=== PATIENT | female | born 1975 ===

== ENCOUNTER 2018-01-02 15:37 | Inpatient (IN) | payer MEDICAID, OTHER ==
[2018-01-02 15:37] VITALS: BMI 34.0
[2018-01-02] MEDS ORDERED: DiphenhydrAMINE 50 mg/ml Inj IVP STA (17:49)
[2018-01-02] MEDS ORDERED: Sodium Chloride 0.9% 1,000 ML IV STA (17:49)
[2018-01-02] MEDS ORDERED: DiphenhydrAMINE 50 mg/ml Inj ONE (18:03)
--- NOTE | 2018-01-02 18:21 | ED PDOC ---
HPI: Headache Chief Complaint (Provider): Headache, Facial Pain History Per: Patient History/Exam Limitations: no limitations Onset/Duration Of Symptoms: Days (x1) Current Symptoms Are (Timing): Still Present Additional Complaint(s): 42 year old female presents to the ED for evaluation of a gradual onset headache associated with photophobia, nausea, and left sided facial pain since yesterday consistent with similar episodes of her trigeminal neuralgia in the past. She reports she usually takes tramadol 100mg for her symptoms, but her supply was recently depleted. Pt also notes not having a neurologist in the area currently due to her recently moving from [place]. Otherwise denies trauma, fever, sudden onset of headache, and antipyretic use. PMD: Uri Geller <Ramiro Mathews - Last Filed: 01/02/18 23:23> <Addie Kendall - Last Filed: 01/04/18 18:26> Time Seen by Provider: 01/02/18 15:49 Chief Complaint (Nursing): Headache Supervising Attending Note - Attestation: I have personally seen and examined this patient.: No I have reviewed all pertinent clinical information: Yes <Addie Kendall - Last Filed: 01/04/18 18:26> Past Medical History Reviewed: Historical Data, Nursing Documentation, Vital Signs Vital Signs: Last Vital Signs Temp 98.3 F 01/02/18 15:42 Pulse 95 H 01/02/18 15:42 Resp 16 01/02/18 15:42 BP 135/85 01/02/18 15:42 Pulse Ox 97 01/02/18 15:42 - Medical History PMH: Asthma - Surgical History Other surgeries: tubal ligation - Family History Family History: States: Unknown Family Hx - Social History Current smoker - smoking cessation education provided: No Alcohol: None Drugs: Denies - Immunization History Hx Tetanus Toxoid Vaccination: Yes Hx Influenza Vaccination: No Hx Pneumococcal Vaccination: No <Ramiro Mathews - Last Filed: 01/02/18 23:23> Vital Signs: Last Vital Signs Temp 97.8 F 01/03/18 16:06 Pulse 97 H 01/03/18 16:06 Resp 18 01/03/18 16:06 BP 139/84 01/03/18 16:06 Pulse Ox 98 01/03/18 16:06 <Kendall,Addie F - Last Filed: 01/04/18 18:26> - Home Medications Home Medications: Ambulatory Orders Medication Instructions Recorded RX: Albuterol HFA [Ventolin HFA 90 2 puff IH [id number] PRN #1 puff 02/24/17 mcg/actuation (8 g)] RX: Gabapentin [Neurontin] 600 mg PO TID 10 Days tab 01/03/18 RX: Lidocaine 2% [Xylocaine 2%] 1 applic TOP BID 14 Days #1 tube 01/03/18 - Allergies Allergies/Adverse Reactions: Allergies Allergy/AdvReac Type Severity Reaction Status Date / Time No Known Allergies Allergy Verified 01/02/18 15:41 Review of Systems ROS Statement: Except As Marked, All Systems Reviewed And Found Negative Constitutional: Negative for: Fever, Other (trauma) Eyes: Positive for: Other (photophobia) ENT: Positive for: Other (left sided facial pain) Gastrointestinal: Positive for: Nausea Neurological: Positive for: Headache (gradual onset) <Ramiro Mathews - Last Filed: 01/02/18 23:23> Physical Exam - Reviewed Nursing Documentation Reviewed: Yes Vital Signs Reviewed: Yes - Physical Exam Appears: Positive for: In Acute Distress (mild painful) Head Exam: Positive for: ATRAUMATIC, NORMOCEPHALIC Skin: Positive for: Normal Color, Warm, Dry. Negative for: Rash Eye Exam: Positive for: Other (photophobia) ENT: Positive for: Normal ENT Inspection Gastrointestinal/Abdominal: Positive for: Normal Exam, Soft. Negative for: Tenderness Neurologic/Psych: Positive for: Alert, Oriented (x3). Negative for: Aphasia, Facial Droop <Ramiro Mathews - Last Filed: 01/02/18 23:23> - Laboratory Results Result Diagrams: 01/02/18 18:16 01/02/18 18:16 - ECG O2 Sat by Pulse Oximetry: 97 (RA) Pulse Ox Interpretation: Normal <Ramiro Mathews - Last Filed: 01/02/18 23:23> - Laboratory Results Result Diagrams: 01/02/18 18:16 01/02/18 18:16 <Addie Kendall F - Last Filed: 01/04/18 18:26> Medical Decision Making Medical Decision Making: Time: 1648 Initial Impression: headache, left facial pain Initial Plan: --CMP --U-preg --CBC with differential --Benadryl 50mg IVP --Imitrex Inj 6mg SC --Reglan 10mg IVPB --Ultram 100mg PO --CT Head without contrast 1809 Secondary to patient's nausea, Zofran 4mg IVP ordered. Pt. reports continued pain. CT head w/o contrast ordered. CT head w/o contrast: negative. Pt. evaluated by Dr. Kendall who recommends neuro consult. Case d/w Dr. Briceno who recommends Decadron 10mg IVP, valproic acid 500mg IV, mag sulfate 2gm IV. Pt. placed on environmental monitoring specialist. Orders placed. On re-evaluation, pt reports no relief in headache. Dr. Kendall recommends admission for intractable headache. Case d/w Dr. Briceno who recommends 0.3mg/kg Ketamine IV drip for 2 hours. Ketamine ordered. Case d/w Dr. Friedman and arrangements made for admission. Scribe Attestation: Documented by Vandana Goldberg, acting as a scribe for Ramiro Mathews PA-C Provider Scribe Attestation: All medical record entries made by the Scribe were at my direction and personally dictated by me. I have reviewed the chart and agree that the record accurately reflects my personal performance of the history, physical exam, medical decision making, and the department course for this patient. I have also personally directed, reviewed, and agree with the discharge instructions and disposition. <Ramiro Mathews - Last Filed: 01/02/18 23:23> Disposition - Patient ED Disposition Is Patient to be Admitted: Yes - Disposition Disposition Time: 23:27 <Ramiro Mathews - Last Filed: 01/02/18 23:23> <Addie Kendall - Last Filed: 01/04/18 18:26> - Clinical Impression Clinical Impression: Trigeminal neuralgia of left side of face - Disposition Condition: STABLE
[2018-01-02 18:28] LABS: BASO % 0.3 % (0.0-2.0); EOS % 0.4 % (0.0-4.0); HEMOGLOBIN 13.4 g/dL (12.0-16.0); LYMPH # 2.8 K/uL (1.0-4.3); LYMPH % 26.6 % (20.0-40.0); MEAN CORPUSCULAR HEMOGLOBIN 32.3 pg (27.0-31.0); MEAN CORPUSCULAR HGB CONC 34.7 g/dL (33.0-37.0); MEAN PLATELET VOLUME 8.2 fl (7.2-11.7); MONO # 0.9 K/uL (0.0-0.8); MONO % 8.4 % (0.0-10.0); NEUT # 6.6 K/uL (1.8-7.0); NEUT % 64.3 % (50.0-75.0); RBC 4.16 Mil/uL (3.80-5.20); RED CELL DISTRIBUTION WIDTH 13.9 % (11.5-14.5); WHITE BLOOD COUNT 10.3 K/uL (4.8-10.8)
[2018-01-02 18:34] LABS: ALB/GLOB RATIO 1.1 (1.0-2.1); ALBUMIN 4.4 g/dL (3.5-5.0); ALT/SGPT 27 U/L (9-52); AST/SGOT 23 U/L (14-36); BLOOD UREA NITROGEN 11 mg/dl (7-17); CALCIUM 9.4 mg/dL (8.4-10.2); GFR NON-AFRICAN AMERICAN > 60
--- NOTE | 2018-01-02 18:41 | CT ---
Date of service: 01/02/2018 PROCEDURE: CT HEAD WITHOUT CONTRAST. HISTORY: Headache COMPARISON: None available. TECHNIQUE: Axial computed tomography images were obtained through the head/brain without intravenous contrast. Radiation dose: Total exam DLP = 753.09 mGy-cm. This CT exam was performed using one or more of the following dose reduction techniques: Automated exposure control, adjustment of the mA and/or kV according to patient size, and/or use of iterative reconstruction technique. FINDINGS: HEMORRHAGE: No intracranial hemorrhage. BRAIN: Kinney-white matter differentiation is preserved. There is no mass, mass effect or abnormal extra-axial fluid collection. There is no territorial infarction. The midline sagittal structures are normal. VENTRICLES: The ventricles are normal in size, shape and configuration. CALVARIUM: The skull base and calvarium are normal. PARANASAL SINUSES: Predominantly clear. MASTOID AIR CELLS: Predominantly clear. OTHER FINDINGS: None. IMPRESSION: No acute intracranial abnormality.
[2018-01-02] MEDS ORDERED: Valproate 500 MG in Sodium Chloride 0.9% 100 ML IVPB ONE (19:56)
[2018-01-02] MEDS ORDERED: Dexamethasone 10 MG in Dextrose 5% In Water 50 ML IVPB ONE (19:56)
[2018-01-02] MEDS ORDERED: Magnesium Sulfate 2 gm/50 ml 2 GM/50 ML BAG IV ONE (20:45)
[2018-01-02] MEDS ORDERED: Magnesium Sulfate 2 gm/50 ml 2 GM/50 ML BAG ONE (20:50)
[2018-01-02] MEDS ORDERED: Dexamethasone 4 mg/1 ml ONE (21:06)
[2018-01-02] MEDS ORDERED: Ketamine 50 mg/ml Inj (10 ml) IVPB ONE (22:45)
[2018-01-02] MEDS ORDERED: SODIUM CHLORIDE 0.9% IVPB ONE (23:00)
[2018-01-02] MEDS ORDERED: KETAMINE IVPB ONE (23:00)
--- NOTE | 2018-01-03 00:15 | CP.PCM.HP ---
Addendum entered and electronically signed by Fawad Rubio DPM 01/03/18 11:30: 42 y/o female with PMHx of Trigeminal Neuralgia admitted for intractable headache 2/2 to [place]. Patient was seen and evaluated at bedside. Patient family member was at bedside. Patient complains of 10/10 pain to the left side of her face along with a headache. Patient states she is nauseous due to the headache and had 1 episode of vomiting clear fluids. Patient states she ate this morning and was able to tolerate food. Patient denies any complaints of fever, SOB or chest pain at this time. Plan: 1) Intractable Pain 2/2 to Trigeminal Neuralgia -pain control -carbamezpine 100mg BID -Pending Neurology consult- awaiting recommendations 2) Drug Screen - Urine Drug Screen- Pending 3) Prophylaxis -Lovenox 40mg SC QD Original Note: <Chung Ross - Last Filed: 01/03/18 01:00> History of Present Illness - History of Present Illness History of Present Illness: CC: "my trigeminal neuralgia is really bad" HPI: 42 y/o female, with PMHx of Trigeminal Neuralgia presented to the ER for evaluation of left sided facial pain/headache. She reports she was sleeping last night when she was suddenly woken up with severe left sided facial pain. She attempted to go back to sleep but symptoms did not improve. She reports the pain worsened throughout the day, prompting her to come to the ER. She denies taking any medications. The pain is located to the left side of her face, 10/10, described as constant, with radiation to her left neck and left shoulder. It is associated with photophobia and nausea. No history of trauma or injury. Pt reports formally taking tramadol 100mg as well as two other pain medciations prescribed her her neurologist and pain mgmnt . She does not remember their names but reports they are located in [facility]. She reports being admitted to a hospital in [facility] for over a month earlier this year where she was diagnosed with TN. She reports having a "binder of documents" at home with medications and treatments but failed to produce it today. No other complaints. Denies any numbness/tingling, weakness, CP/SOB/Palpiations, V/D/C, urinary symptoms. ROS: 12 systems reviewed, found to be negative as per HPI PMD: doesnt recall names PMHX: Trigeminal neuralgia (disgnosed this year) Meds: tramadol, unknown 2 other pain meds ALL: NKDA Psurghx: tubal ligation PhospHx: [place] in [place] (doesnt recall hospital name) Social: homeless, denies ETOH/tobacco/drug abuse FamilyHx: denies ED Course Vitals: stable, HR 95 CBC: wnl CMP: wnl CT: wnl Neuro consult Meds: -Decadron 10mg -mag 2gm -zofran 4mg -1 L NS -Benadryl 50mg IVP -Imitrex Inj 6mg SC -Reglan 10mg IVPB -Ultram 100mg PO -started on ketamine drip as per neuro Present on Admission - Present on Admission Any Indicators Present on Admission: No History of DVT/PE: No History of Uncontrolled Diabetes: No Urinary Catheter: No Decubitus Ulcer Present: No Past Patient History - Past Social History Smoking Status: Never Smoked Alcohol: None Drugs: Denies Home Situation {Lives}: Homeless - PULMONARY Hx Asthma: Yes - PSYCHIATRIC Hx Substance Use: No - SURGICAL HISTORY Hx Surgeries: Yes Hx Tubal Ligation: Yes - ANESTHESIA Hx Anesthesia: Yes Hx Anesthesia Reactions: No Meds Allergies/Adverse Reactions: Allergies Allergy/AdvReac Type Severity Reaction Status Date / Time No Known Allergies Allergy Verified 01/02/18 15:41 Physical Exam - Constitutional Appears: Non-toxic, No Acute Distress - Head Exam Head Exam: ATRAUMATIC, NORMOCEPHALIC Additional comments: mild tenderness overlying left aspect of face along V2 - Eye Exam Eye Exam: EOMI. absent: Nystagmus, Scleral icterus Pupil Exam: NORMAL ACCOMODATION, PERRL. absent: Irregular, Miosis, Mydriatic - ENT Exam ENT Exam: Mucous Membranes Moist - Neck Exam Neck exam: Positive for: Full Rom. Negative for: Tenderness - Respiratory Exam Respiratory Exam: Clear to Auscultation Bilateral, NORMAL BREATHING PATTERN. absent: Accessory Muscle Use, Rales, Rhonchi, Wheezes - Cardiovascular Exam Cardiovascular Exam: REGULAR RHYTHM, RRR, +S1, +S2. absent: Tachycardia, Irregular Rhythm, JVD, Rubs, Systolic Murmur - GI/Abdominal Exam GI & Abdominal Exam: Normal Bowel Sounds, Soft. absent: Tenderness - Extremities Exam Extremities exam: Positive for: normal capillary refill, normal inspection, pedal pulses present. Negative for: pedal edema, tenderness - Back Exam Back exam: NORMAL INSPECTION - Neurological Exam Neurological exam: Alert, CN II-XII Intact, Oriented x3 - Psychiatric Exam Psychiatric exam: Normal Affect, Normal Mood - Skin Skin Exam: Dry, Intact, Normal Color, Warm Results - Vital Signs Recent Vital Signs: Last Vital Signs Temp 98.5 F 01/02/18 23:58 Pulse 74 01/02/18 23:58 Resp 17 01/02/18 23:58 BP 132/83 01/02/18 23:58 Pulse Ox 99 01/02/18 23:58 - Labs Result Diagrams: 01/02/18 18:16 01/02/18 18:16 Labs: Laboratory Results - last 24 hr 01/02/18 01/02/18 18:16 18:16 WBC 10.3 RBC 4.16 Hgb 13.4 Hct 38.7 MCV 93.0 MCH 32.3 H MCHC 34.7 RDW 13.9 Plt Count 298 MPV 8.2 Neut % (Auto) 64.3 Lymph % (Auto) 26.6 [place] % (Auto) 8.4 Eos % (Auto) 0.4 Baso % (Auto) 0.3 Neut # (Auto) 6.6 Lymph # (Auto) 2.8 [place] # (Auto) 0.9 H Eos # (Auto) 0.0 Baso # (Auto) 0.0 Sodium 140 Potassium 4.0 Chloride 105 Carbon Dioxide 24 Anion Gap 15 BUN 11 Creatinine 0.7 Est GFR ( Amer) > 60 Est GFR (Non-Af Amer) > 60 Random Glucose 97 Calcium 9.4 Total Bilirubin 0.2 AST 23 ALT 27 Alkaline Phosphatase 118 Total Protein 8.5 H Albumin 4.4 Globulin 4.0 H Albumin/Globulin Ratio 1.1 Assessment & Plan - Assessment and Plan (Free Text) Assessment: 42 y/o female with PMHx of Trigeminal Neuralgia admitted for intractable headache 2/2 to [place]. Plan: 1) Intractable Pain 2/2 to Trigeminal Neuralgia -high suspicion for potential drug seeking behavior -c/w ketamine drip as per neuro -head CT negative -neuro checks -pain control -start carbamezpine 100mg BID once ketamine drip completes -follow up records in [facility]/prior specialists -neuro consult -consider brain MRI 2) Diet -regular 3) Prophylaxis -Lovenox 40mg SC QD 4) Code Status -full code <Antoine Friedman P - Last Filed: 01/03/18 06:54> Results - Vital Signs Recent Vital Signs: Last Vital Signs Temp 97.7 F 01/03/18 02:38 Pulse 71 01/03/18 02:38 Resp 20 01/03/18 02:38 BP 123/80 01/03/18 02:38 Pulse Ox 98 01/03/18 02:38 - Labs Result Diagrams: 01/02/18 18:16 01/02/18 18:16 Labs: Laboratory Results - last 24 hr 01/02/18 01/02/18 18:16 18:16 WBC 10.3 RBC 4.16 Hgb 13.4 Hct 38.7 MCV 93.0 MCH 32.3 H MCHC 34.7 RDW 13.9 Plt Count 298 MPV 8.2 Neut % (Auto) 64.3 Lymph % (Auto) 26.6 [place] % (Auto) 8.4 Eos % (Auto) 0.4 Baso % (Auto) 0.3 Neut # (Auto) 6.6 Lymph # (Auto) 2.8 [place] # (Auto) 0.9 H Eos # (Auto) 0.0 Baso # (Auto) 0.0 Sodium 140 Potassium 4.0 Chloride 105 Carbon Dioxide 24 Anion Gap 15 BUN 11 Creatinine 0.7 Est GFR ( Amer) > 60 Est GFR (Non-Af Amer) > 60 Random Glucose 97 Calcium 9.4 Total Bilirubin 0.2 AST 23 ALT 27 Alkaline Phosphatase 118 Total Protein 8.5 H Albumin 4.4 Globulin 4.0 H Albumin/Globulin Ratio 1.1 Attending/Attestation - Attestation I have personally seen and examined this patient.: Yes I have fully participated in the care of the patient.: Yes I have reviewed all pertinent clinical information: Yes Notes (Text): 01/03/18 06:46 Patient recently moved from [place] as per her was admitted to [facility] for more than a month for intractable left TN, had been receiving all sorts of meds including opiods in the hospital, and out patient was being managed by neurologist and pain physician. As per her was taking tramadol and 2 other meds which she ran out for last 2 wks and the pain started again yesterday. Patient didn't had the bottles, no information from the hospital, and didn't remember the names of the physicians prescribing the meds. W/u her was negative including vital. Neurology was consulted in ER suggested initially coctails as mentioned above and then ketamine drip. 42 F coming with intractable pain which could not be confirmed, without any details of the care including physicians, med bottles, is suspicious for pain seeking behaviour, should try to avoid opiods, will try to contact the [facility] today to confirm details including patients pictures. Currently started on carbamezipine 100mg bid. Neurology on consult.
[2018-01-03] MEDS ORDERED: Pneumococcal 23-Valent Vaccine IM ONE (08:32)
[2018-01-03] MEDS ORDERED: Influenza Vaccine (5 YR UP)/PF 60 MCG/0.5 ML SYR IM ONE (08:35)
[2018-01-03] MEDS ORDERED: Enoxaparin 40 mg Syringe SC SCH (09:00)
[2018-01-03] MEDS ORDERED: Lidocaine 2% GEL TOP ONE (11:05)
[2018-01-03 11:45] LABS: BARBITURATES, UR NEGATIVE (NEGATIVE); BENZODIAZEPINES, UR NEGATIVE (NEGATIVE); OPIATES, UR POSITIVE (NEGATIVE); PHENCYCLIDINE, UR NEGATIVE (NEGATIVE)
--- NOTE | 2018-01-03 14:15 | CP.PCM.CON ---
History of Present Illness - History of Present Illness History of Present Illness: Neurology Consultation Note: Mrs. Peña is a 42-year-old woman, with a pertinent past medical history of left V1/2 distribution trigeminal neuralgia that has been refractory to carbamazepine, opiates and lidocaine nerve block. She states that when the weather was colder the other day, her symptoms became more severe and now she also has headache on the left side that is pulsating, associated with nausea and photophobia. However, the patient was able to complete a meal that involves a significant amount of chewing and was pleasant and conversant with me in a bright room. She does currently complain of a 10/10 pain that is disabling. She said that the doses of medications we are giving her are too low. Last night, I spoke with the ED regarding this patient and gave her Depakote, Decadron, and Magnesium Sulfate. That did not help. We then started ketamine infusion. Apparently, that did not help either. Non-contrast CT scan of the head was normal. Review of Systems - Constitutional Constitutional: absent: As Per HPI, Anorexia, Chills, Daytime Sleepiness, Excessive Sweating, Fatigue, Fever, Frequent Falls, Headache, Increased Appetite, Lethargy, Malaise, Night Sweats, Snoring, Sleep Apnea, Weight Gain, Weight Loss, Weakness, Other - EENT Eyes: absent: As Per HPI, Blind Spots, Blurred Vision, Change in Vision, Decreased Night Vision, Diplopia, Discharge, Dry Eye, Exophthalmos, Floaters, Irritation, Itchy Eyes, Loss of Peripheral Vision, Pain, Photophobia, Requires Corrective Lenses, Sees Flashes, Spots in Vision, Tunnel Vision, Other Visual Disturbances, Loss of Vision, Other Ears: absent: As Per HPI, Decreased Hearing, Ear Discharge, Ear Pain, Tinnitus, Abnormal Hearing, Disequilibrium, Dizziness, Other Nose/Mouth/Throat: absent: As Per HPI, Epistaxis, Nasal Congestion, Nasal Discharge, Nasal Obstruction, Nasal Trauma, Nose Pain, Post Nasal Drip, Sinus Pain, Sinus Pressure, Bleeding Gums, Change in Voice, Dental Pain, Dry Mouth, Dysphagia, Halitosis, Hoarsness, Lip Swelling, Mouth Lesions, Mouth Pain, Odynophagia, Sore Throat, Throat Swelling, Tongue Swelling, Facial Pain, Neck Pain, Neck Mass, Other - Respiratory Respiratory: absent: As Per HPI, Cough, Dyspnea, Hemoptysis, Dyspnea on Exertio n, Wheezing, Snoring, Stridor, Pain on Inspiration, Chest Congestion, Excessive Mucous Production, Change in Mucous Color, Pain with Coughing, Other - Gastrointestinal Gastrointestinal: absent: As Per HPI, Abdominal Pain, Belching, Bloating, Change in Bowel Habits, Change in Stool Character, Coffee Ground Emesis, Constipation, Cramping, Diarrhea, Dyspepsia, Dysphagia, Early Satiety, Excessive Flatus, Fecal Incontinence, Heartburn, Hematemesis, Hematochezia, Loose Stools, Melena, Nausea, Odynophagia, Temesmus, Vomiting, Other - Musculoskeletal Musculoskeletal: absent: As Per HPI, Abnormal Gait, Arthralgias, Atrophy, Back Pain, Deformity, Joint Swelling, Limited Range of Motion, Loss of Height, Muscle Cramps, Muscle Weakness, Myalgias, Neck Pain, Numbness, Radiating Pain into Limb, Stiffness, Tingling, Other - Integumentary Integumentary: absent: As Per HPI, Acne, Alopecia, Bleeding Lesions, Change in Hair, Change in Nails, Change in Pigmentation, Changing Lesions, Dry Skin, Erythema, Furuncle, Hirsutism, Lesions, New Lesions, Non-Healing Lesions, Photosensitivity, Pruritus, Rash, Skin Pain, Skin Ulcer, Sores, Striae, Swelling, Unusual Bruising, Wounds, Jaundice, Other - Neurological Neurological: As Per HPI - Psychiatric Psychiatric: absent: As Per HPI, Abnormal Sleep Pattern, Anhedonia, Anxiety, Auditory Hallucinations, Behavioral Changes, Change in Appetite, Change in Libido, Confusion, Depression, Difficulty Concentrating, Hallucinations, Homicidal Ideation, Hopelessness, Irritability, Memory Loss, Mood Swings, Panic Attacks, Paranoia, Suicidal Ideation, Visual Hallucinations, Tactile Hallucinations, Other - Endocrine Endocrine: absent: As Per HPI, Change in Body Appearance, Change in Libido, Cold Intolorance, Deepening of Voice, Excessive Sweating, Fatigue, Flushing, Heat Intolorance, Increase in Ring/Shoe/Hat Size, Palpitations, Polydipsia, Polyphagia, Polyuria, Other Past Patient History - Past Medical History & Family History Past Medical History?: Yes - Past Social History Smoking Status: Never Smoked - CARDIAC Hx Cardiac Disorders: No - PULMONARY Hx Respiratory Disorders: Yes Hx Asthma: Yes - NEUROLOGICAL Hx Neurological Disorder: Yes Other/Comment: Trigeminal NEuralgia - HEENT Hx HEENT Problems: No - RENAL Hx Chronic Kidney Disease: No - ENDOCRINE/METABOLIC Hx Endocrine Disorders: No - HEMATOLOGICAL/ONCOLOGICAL Hx Blood Disorders: No Hx AIDS: No Hx Human Immunodeficiency Virus (HIV): No - INTEGUMENTARY Hx Dermatological Problems: No - MUSCULOSKELETAL/RHEUMATOLOGICAL Hx Musculoskeletal Disorders: No Hx Falls: No - GASTROINTESTINAL Hx Gastrointestinal Disorders: No - GENITOURINARY/GYNECOLOGICAL Hx Genitourinary Disorders: No - PSYCHIATRIC Hx Psychophysiologic Disorder: No Hx Substance Use: No - SURGICAL HISTORY Hx Surgeries: Yes Hx Tubal Ligation: Yes - ANESTHESIA Hx Anesthesia: Yes Hx Anesthesia Reactions: No Hx Malignant Hyperthermia: No Meds Allergies/Adverse Reactions: Allergies Allergy/AdvReac Type Severity Reaction Status Date / Time No Known Allergies Allergy Verified 01/02/18 15:41 - Medications Medications: Current Medications Carbamazepine (Tegretol-Xr) 100 mg PO Q12 [facility] Last Admin: 01/03/18 09:07 Dose: Not Given Enoxaparin Sodium (Lovenox) 40 mg SC DAILY [facility]; Protocol Last Admin: 01/03/18 09:26 Dose: 40 mg Famotidine (Pepcid) 20 mg PO DAILY [facility] Last Admin: 01/03/18 11:30 Dose: 20 mg Ibuprofen (Motrin Tab) 600 mg PO Q6 PRN PRN Reason: Pain, moderate (4-7) Last Admin: 01/03/18 10:07 Dose: 600 mg Ketorolac Tromethamine (Toradol) 10 mg PO Q6 PRN PRN Reason: Pain, severe (8-10) Last Admin: 01/03/18 11:30 Dose: 10 mg Lidocaine HCl (Xylocaine 2%) 1 applic TOP BID [facility] Last Admin: 01/03/18 11:38 Dose: 1 applic Ondansetron HCl (Zofran Inj) 4 mg IVP Q6 PRN PRN Reason: Nausea/Vomiting Physical Exam - Constitutional Appears: Well - Head Exam Head Exam: ATRAUMATIC, NORMAL INSPECTION, NORMOCEPHALIC - Eye Exam Eye Exam: EOMI, Normal appearance, PERRL - ENT Exam ENT Exam: Mucous Membranes Moist, Normal Exam - Neck Exam Neck exam: Positive for: Normal Inspection - Respiratory Exam Respiratory Exam: Clear to Auscultation Bilateral, NORMAL BREATHING PATTERN - Cardiovascular Exam Cardiovascular Exam: REGULAR RHYTHM - GI/Abdominal Exam GI & Abdominal Exam: Normal Bowel Sounds, Soft. absent: Tenderness - Rectal Exam Rectal Exam: Deferred - Back Exam Back exam: NORMAL INSPECTION - Neurological Exam Neurological exam: Alert, CN II-XII Intact, Normal Gait, Oriented x3, Reflexes Normal - Psychiatric Exam Psychiatric exam: Normal Affect, Normal Mood - Skin Skin Exam: Dry, Intact, Normal Color, Warm Results - Vital Signs Recent Vital Signs: Last Vital Signs Temp 98.2 F 01/03/18 08:37 Pulse 79 01/03/18 08:37 Resp 20 01/03/18 08:37 BP 119/73 01/03/18 08:37 Pulse Ox 97 01/03/18 08:37 - Labs Result Diagrams: 01/02/18 18:16 01/02/18 18:16 Labs: Laboratory Results - last 24 hr 01/02/18 01/02/18 01/03/18 18:16 18:16 10:30 WBC 10.3 RBC 4.16 Hgb 13.4 Hct 38.7 MCV 93.0 MCH 32.3 H MCHC 34.7 RDW 13.9 Plt Count 298 MPV 8.2 Neut % (Auto) 64.3 Lymph % (Auto) 26.6 [place] % (Auto) 8.4 Eos % (Auto) 0.4 Baso % (Auto) 0.3 Neut # (Auto) 6.6 Lymph # (Auto) 2.8 [place] # (Auto) 0.9 H Eos # (Auto) 0.0 Baso # (Auto) 0.0 Sodium 140 Potassium 4.0 Chloride 105 Carbon Dioxide 24 Anion Gap 15 BUN 11 Creatinine 0.7 Est GFR ( Amer) > 60 Est GFR (Non-Af Amer) > 60 Random Glucose 97 Calcium 9.4 Total Bilirubin 0.2 AST 23 ALT 27 Alkaline Phosphatase 118 Total Protein 8.5 H Albumin 4.4 Globulin 4.0 H Albumin/Globulin Ratio 1.1 Urine Opiates Screen Positive H Urine Methadone Screen Negative Ur Barbiturates Screen Negative Ur Phencyclidine Scrn Negative Ur Amphetamines Screen Negative U Benzodiazepines Scrn Negative U Oth Cocaine Metabols Negative U Cannabinoids Screen Negative Assessment & Plan (1) Trigeminal neuralgia of left side of face Assessment and Plan: Will start neurontin 600 mg TID and follow. Status: Acute (2) Migraine Assessment and Plan: Will consider treating with another infusion of ketamine if this does not subside with use of neurontin to treat the trigeminal nerve irritation. Thank you for this consultation. Status: Acute
[2018-01-03 16:07] VITALS: BP 139/84; PULSE 97; RESP 18; TEMP 97.8; O2SAT 98
--- NOTE | 2018-01-03 16:17 | CP.PCM.DIS ---
<Gabbi Bravo - Last Filed: 01/03/18 16:51> Provider - Provider Date of Admission: 01/02/18 22:33 Attending physician: Antoine Friedman MD Time Spent in preparation of Discharge (in minutes): 30 Diagnosis - Discharge Diagnosis (1) Headache Status: Chronic Hospital Course - Lab Results Lab Results: Most Recent Lab Values WBC 10.3 K/uL (4.8-10.8) 01/02/18 18:16 RBC 4.16 Mil/uL (3.80-5.20) 01/02/18 18:16 Hgb 13.4 g/dL (12.0-16.0) 01/02/18 18:16 Hct 38.7 % (34.0-47.0) 01/02/18 18:16 MCV 93.0 fl (81.0-99.0) 01/02/18 18:16 MCH 32.3 pg (27.0-31.0) H 01/02/18 18:16 MCHC 34.7 g/dL (33.0-37.0) 01/02/18 18:16 RDW 13.9 % (11.5-14.5) 01/02/18 18:16 Plt Count 298 K/uL (130-400) 01/02/18 18:16 MPV 8.2 fl (7.2-11.7) 01/02/18 18:16 Neut % (Auto) 64.3 % (50.0-75.0) 01/02/18 18:16 Lymph % (Auto) 26.6 % (20.0-40.0) 01/02/18 18:16 Arthur % (Auto) 8.4 % (0.0-10.0) 01/02/18 18:16 Eos % (Auto) 0.4 % (0.0-4.0) 01/02/18 18:16 Baso % (Auto) 0.3 % (0.0-2.0) 01/02/18 18:16 Neut # (Auto) 6.6 K/uL (1.8-7.0) 01/02/18 18:16 Lymph # (Auto) 2.8 K/uL (1.0-4.3) 01/02/18 18:16 Arthur # (Auto) 0.9 K/uL (0.0-0.8) H 01/02/18 18:16 Eos # (Auto) 0.0 K/uL (0.0-0.7) 01/02/18 18:16 Baso # (Auto) 0.0 K/uL (0.0-0.2) 01/02/18 18:16 Sodium 140 mmol/l (132-148) 01/02/18 18:16 Potassium 4.0 MMOL/L (3.6-5.0) 01/02/18 18:16 Chloride 105 mmol/L (98-107) 01/02/18 18:16 Carbon Dioxide 24 mmol/L (22-30) 01/02/18 18:16 Anion Gap 15 (10-20) 01/02/18 18:16 BUN 11 mg/dl (7-17) 01/02/18 18:16 Creatinine 0.7 mg/dl (0.7-1.2) 01/02/18 18:16 Est GFR ( Amer) > 60 01/02/18 18:16 Est GFR (Non-Af Amer) > 60 01/02/18 18:16 Random Glucose 97 mg/dL (65-105) 01/02/18 18:16 Calcium 9.4 mg/dL (8.4-10.2) 01/02/18 18:16 Total Bilirubin 0.2 mg/dl (0.2-1.3) 01/02/18 18:16 AST 23 U/L (14-36) 01/02/18 18:16 ALT 27 U/L (9-52) 01/02/18 18:16 Alkaline Phosphatase 118 U/L (38-126) 01/02/18 18:16 Total Protein 8.5 G/DL (6.3-8.2) H 01/02/18 18:16 Albumin 4.4 g/dL (3.5-5.0) 01/02/18 18:16 Globulin 4.0 gm/dL (2.2-3.9) H 01/02/18 18:16 Albumin/Globulin Ratio 1.1 (1.0-2.1) 01/02/18 18:16 Urine Opiates Screen Positive (NEGATIVE) H 01/03/18 10:30 Urine Methadone Screen Negative (NEGATIVE) 01/03/18 10:30 Ur Barbiturates Screen Negative (NEGATIVE) 01/03/18 10:30 Ur Phencyclidine Scrn Negative (NEGATIVE) 01/03/18 10:30 Ur Amphetamines Screen Negative (NEGATIVE) 01/03/18 10:30 U Benzodiazepines Scrn Negative (NEGATIVE) 01/03/18 10:30 U Oth Cocaine Metabols Negative (NEGATIVE) 01/03/18 10:30 U Cannabinoids Screen Negative (NEGATIVE) 01/03/18 10:30 - Hospital Course Hospital Course: 42 y/o female with PMHx of Trigeminal Neuralgia admitted for intractable headache 04/27 to [place]. - Patient was given decadron, Ketamine drip, toradol, Magnesium, Imitrex, Reglan, and carbamazapine. Which as per patient didn't help much. - She was seen by neurology in house and was seen eating her lunch without any problems. She was advised to take Gabapentin 600mg TID. She was also been given topical lidocaine. CT head is negative in ER. - Patients states that her pain is more improved then initial presentation, however continues to occur. Have spoke to neurology and hospitalist Dr. Meeks. Patient is stable for discharge. Will be discharged with Gabapentin 600 mg TID along with topical lidocaine, and has been given an appointment to follow up in [facility] with Dr. Koch @1:00 pm tomorrow. Discharge medications Gabapentin 600 mg TID Lidocaine 2% topical Discharge Exam - Head Exam Head Exam: ATRAUMATIC, NORMAL INSPECTION, NORMOCEPHALIC - Eye Exam Eye Exam: Normal appearance - ENT Exam ENT Exam: Mucous Membranes Moist - Respiratory Exam Respiratory Exam: Clear to PA & Lateral, NORMAL BREATHING PATTERN. absent: Wheezes, Respiratory Distress - Cardiovascular Exam Cardiovascular Exam: REGULAR RHYTHM, +S1, +S2 - GI/Abdominal Exam GI & Abdominal Exam: Normal Bowel Sounds, Soft. absent: Tenderness - Extremities Exam Extremities exam: normal inspection - Neurological Exam Neurological exam: Alert, CN II-XII Intact, Oriented x3 - Skin Skin Exam: Normal Color, Warm Discharge Plan - Discharge Medications Prescriptions: Gabapentin [Neurontin] 600 mg PO TID 10 Days tab Lidocaine 2% [Xylocaine 2%] 1 applic TOP BID 14 Days #1 tube - Follow Up Plan Condition: STABLE Disposition: HOME/ ROUTINE Instructions: Trigeminal Neuralgia, Headache, Adult (DC) Additional Instructions: - Follow up in [facility]: January 04, 2018 @ 1:00 pm Referrals: [facility] [Outside] Kem Briceno MD [Medical Doctor] - <Kelly Meeks - Last Filed: 01/03/18 18:12> Provider - Provider Date of Admission: 01/02/18 22:33 Attending physician: Antoine Friedman MD Hospital Course - Lab Results Lab Results: Most Recent Lab Values WBC 10.3 K/uL (4.8-10.8) 01/02/18 18:16 RBC 4.16 Mil/uL (3.80-5.20) 01/02/18 18:16 Hgb 13.4 g/dL (12.0-16.0) 01/02/18 18:16 Hct 38.7 % (34.0-47.0) 01/02/18 18:16 MCV 93.0 fl (81.0-99.0) 01/02/18 18:16 MCH 32.3 pg (27.0-31.0) H 01/02/18 18:16 MCHC 34.7 g/dL (33.0-37.0) 01/02/18 18:16 RDW 13.9 % (11.5-14.5) 01/02/18 18:16 Plt Count 298 K/uL (130-400) 01/02/18 18:16 MPV 8.2 fl (7.2-11.7) 01/02/18 18:16 Neut % (Auto) 64.3 % (50.0-75.0) 01/02/18 18:16 Lymph % (Auto) 26.6 % (20.0-40.0) 01/02/18 18:16 Arthur % (Auto) 8.4 % (0.0-10.0) 01/02/18 18:16 Eos % (Auto) 0.4 % (0.0-4.0) 01/02/18 18:16 Baso % (Auto) 0.3 % (0.0-2.0) 01/02/18 18:16 Neut # (Auto) 6.6 K/uL (1.8-7.0) 01/02/18 18:16 Lymph # (Auto) 2.8 K/uL (1.0-4.3) 01/02/18 18:16 Arthur # (Auto) 0.9 K/uL (0.0-0.8) H 01/02/18 18:16 Eos # (Auto) 0.0 K/uL (0.0-0.7) 01/02/18 18:16 Baso # (Auto) 0.0 K/uL (0.0-0.2) 01/02/18 18:16 Sodium 140 mmol/l (132-148) 01/02/18 18:16 Potassium 4.0 MMOL/L (3.6-5.0) 01/02/18 18:16 Chloride 105 mmol/L (98-107) 01/02/18 18:16 Carbon Dioxide 24 mmol/L (22-30) 01/02/18 18:16 Anion Gap 15 (10-20) 01/02/18 18:16 BUN 11 mg/dl (7-17) 01/02/18 18:16 Creatinine 0.7 mg/dl (0.7-1.2) 01/02/18 18:16 Est GFR ( Amer) > 60 01/02/18 18:16 Est GFR (Non-Af Amer) > 60 01/02/18 18:16 Random Glucose 97 mg/dL (65-105) 01/02/18 18:16 Calcium 9.4 mg/dL (8.4-10.2) 01/02/18 18:16 Total Bilirubin 0.2 mg/dl (0.2-1.3) 01/02/18 18:16 AST 23 U/L (14-36) 01/02/18 18:16 ALT 27 U/L (9-52) 01/02/18 18:16 Alkaline Phosphatase 118 U/L (38-126) 01/02/18 18:16 Total Protein 8.5 G/DL (6.3-8.2) H 01/02/18 18:16 Albumin 4.4 g/dL (3.5-5.0) 01/02/18 18:16 Globulin 4.0 gm/dL (2.2-3.9) H 01/02/18 18:16 Albumin/Globulin Ratio 1.1 (1.0-2.1) 01/02/18 18:16 Urine Opiates Screen Positive (NEGATIVE) H 01/03/18 10:30 Urine Methadone Screen Negative (NEGATIVE) 01/03/18 10:30 Ur Barbiturates Screen Negative (NEGATIVE) 01/03/18 10:30 Ur Phencyclidine Scrn Negative (NEGATIVE) 01/03/18 10:30 Ur Amphetamines Screen Negative (NEGATIVE) 01/03/18 10:30 U Benzodiazepines Scrn Negative (NEGATIVE) 01/03/18 10:30 U Oth Cocaine Metabols Negative (NEGATIVE) 01/03/18 10:30 U Cannabinoids Screen Negative (NEGATIVE) 01/03/18 10:30 Attending/Attestation - Attestation I have personally seen and examined this patient.: Yes I have fully participated in the care of the patient.: Yes I have reviewed all pertinent clinical information, including history, physical exam and plan: Yes Notes (Text): Headache, History of Trigeminal Neuralgia improved -better with Gabapentin and Lidocaine - CT of head : negative - no neuro deficit - evaluated by Neurology - Tolerates PO diet and is ambulatory - will ff up at the clinic in am
[2018-01-03] MEDS ORDERED: Lidocaine 2% GEL TOP SCH (17:00)
== END 2018-01-03 16:15 | disposition home or self-care (01) | DRG 74 ==
LOC: H.ER 15:37 → H.ERHOLD 22:33 → H.MEDSURG1 01-03 02:20
PROVIDERS: ADMIT Internal Medicine; ATTEND Internal Medicine
PROC: 3E02340 Introduction of Influenza Vaccine into Muscle, Percutaneous Approach (ICD-10-PCS; principal; 2018-01-03)
PROC: 3E0234Z Introduction of Serum, Toxoid and Vaccine into Muscle, Percutaneous Approach (ICD-10-PCS; 2018-01-03)
DX: G50.0 Trigeminal neuralgia (principal); Z59.0 Homelessness; J45.909 Unspecified asthma, uncomplicated; Z23 Encounter for immunization

== ENCOUNTER 2018-01-23 09:56 | Emergency (ER) | payer MEDICAID ==
[2018-01-23 09:56] VITALS: BMI 34.0
[2018-01-23 10:01] VITALS: O2SAT 98
--- NOTE | 2018-01-23 10:17 | ED PDOC ---
HPI: General Adult Time Seen by Provider: 01/23/18 10:08 Chief Complaint (Nursing): Headache History Per: Patient Onset/Duration Of Symptoms: Days (1) Current Symptoms Are (Timing): Still Present Severity: Moderate Pain Scale Rating Of: 5 Additional Complaint(s): Left ear pain x 1 day. [place] small amount of clear liquid coming from ear this A<. Denies injury or fever. Has also had pain left side of face, chronic, dx'ed with trigeminal neuralgia, has appt with neurologist tomorrow. No rash noted. Past Medical History Vital Signs: Last Vital Signs Temp 98.1 F 01/23/18 10:00 Pulse 83 01/23/18 10:00 Resp 19 01/23/18 10:00 BP 145/95 H 01/23/18 10:00 Pulse Ox 98 01/23/18 10:00 - Medical History PMH: Asthma Denies: HIV, Chronic Kidney Disease Other PMH: Trigeminal neuralgia - Family History Family History: States: Unknown Family Hx - Immunization History Hx Tetanus Toxoid Vaccination: Yes Hx Influenza Vaccination: No Hx Pneumococcal Vaccination: No - Home Medications Home Medications: Ambulatory Orders Medication Instructions Recorded Albuterol HFA [Ventolin HFA 90 2 puff IH [id number] PRN #1 puff 02/24/17 mcg/actuation (8 g)] Gabapentin [Neurontin] 600 mg PO TID 10 Days tab 01/03/18 Lidocaine 2% [Xylocaine 2%] 1 applic TOP BID 14 Days #1 tube 01/03/18 Neomycin/Polymyxin/Hydrocortis 3 drop OT TID #1 bottle 01/23/18 [Cortisporin Otic Susp] traMADol [Ultram] 50 mg PO Q8 #10 tab 01/23/18 - Allergies Allergies/Adverse Reactions: Allergies Allergy/AdvReac Type Severity Reaction Status Date / Time No Known Allergies Allergy Verified 01/23/18 10:06 Review of Systems Constitutional: Negative for: Fever ENT: Positive for: Ear Pain Physical Exam - Physical Exam Appears: Positive for: Non-toxic, Uncomfortable Head Exam: Positive for: ATRAUMATIC, NORMAL INSPECTION, NORMOCEPHALIC Skin: Positive for: Normal Color, Warm. Negative for: Rash Eye Exam: Positive for: Normal appearance, EOMI ENT: Positive for: Other (Left canal erythemetous, no bleeding or drainage noted. TM intact nl appearance. No facial rash, erythema or swelling noted) Neurologic/Psych: Positive for: Alert, Oriented. Negative for: Motor/Sensory Deficits - ECG O2 Sat by Pulse Oximetry: 98 Disposition - Clinical Impression Clinical Impression: Trigeminal neuralgia of left side of face, Otitis externa - Patient ED Disposition Is Patient to be Admitted: No Counseled Patient/Family Regarding: Diagnosis, Need For Followup, Rx Given - Disposition Referrals: Zeeshan Stone MD [Staff Provider] - Disposition: Routine/Home Disposition Time: 10:20 Condition: FAIR Prescriptions: Neomycin/Polymyxin/Hydrocortis [Cortisporin Otic Susp] 3 drop OT TID #1 bottle traMADol [Ultram] 50 mg PO Q8 #10 tab Instructions: Trigeminal Neuralgia, Outer Ear Infection
[2018-01-23 11:11] VITALS: BP 110/70; PULSE 74; RESP 20; TEMP 98
== END 2018-01-23 11:11 | disposition home or self-care (01) ==
LOC: H.ER 09:56
DX: G50.0 Trigeminal neuralgia (principal); H60.92 Unspecified otitis externa, left ear

== ENCOUNTER 2018-05-14 15:41 | Emergency (ER) | payer MEDICAID ==
[2018-05-14 15:41] VITALS: BMI 34.0
[2018-05-14 15:45] VITALS: TEMP 98.3
--- NOTE | 2018-05-14 16:06 | ED PDOC ---
HPI: General Adult Time Seen by Provider: 05/14/18 15:49 Chief Complaint (Nursing): Cough, Cold, Congestion Chief Complaint (Provider): cough, congestion and left ear pain History Per: Patient History/Exam Limitations: no limitations Onset/Duration Of Symptoms: Days (x2 weeks) Current Symptoms Are (Timing): Still Present Additional Complaint(s): Homa Peña is a 43 year old female, with a past medical history of asthma and trigeminal neuralgia, who presents to the emergency department complaining of cough and congestion associated with chest tightness ongoing for x2 weeks. Patient states symptoms feel similar to previous episodes of asthma exacerbation, she denies previous intubations but has been hospitalized for her asthma in the past. She reports using inhaler and nebulizer treatment prior to arrival. Patient states she recently finished a course of Prednisone with temporary relief of symptoms. Patient reports that her symptoms worsen with exposure to cold. Her PMD recently prescribed Tessalon Perles, Montelukast and Flovent. Patient also reports left ear pain but denies any fever, chills, chest pain, nausea, vomit, abdominal pain, leg swelling, calf tenderness, orthopnea, or other medical complaints. PMD: [facility] Past Medical History Reviewed: Historical Data, Nursing Documentation, Vital Signs Vital Signs: Last Vital Signs Temp 98.3 F 05/14/18 15:43 Pulse 91 H 05/14/18 15:43 Resp 20 05/14/18 15:43 BP 126/75 05/14/18 15:43 Pulse Ox 99 05/14/18 15:43 - Medical History PMH: Asthma - Surgical History Surgical History: No Surg Hx - Family History Family History: States: Unknown Family Hx - Social History Current smoker - smoking cessation education provided: No Alcohol: None Drugs: Denies - Home Medications Home Medications: Ambulatory Orders Medication Instructions Recorded RX: Gabapentin [Neurontin] 600 mg PO TID 10 Days tab 01/03/18 RX: Lidocaine 2% [Xylocaine 2%] 1 applic TOP BID 14 Days #1 tube 01/03/18 Neomycin/Polymyxin/Hydrocortis 3 drop OT TID #1 bottle 01/23/18 [Cortisporin Otic Susp] RX: traMADol [Ultram] 50 mg PO Q8 #10 tab 01/23/18 Amoxicillin/Clavulanate [Augmentin 1 tab PO BID #14 tab 01/26/18 875 MG-125 MG] RX: Naproxen [Naprosyn] 1 tab PO BID PRN #25 tab 01/26/18 Albuterol Sulfate [Ventolin Hfa] 1 puff IH Q4 PRN #1 unit 05/14/18 RX: predniSONE [predniSONE Tab] 40 mg PO DAILY #8 tab 05/14/18 - Allergies Allergies/Adverse Reactions: Allergies Allergy/AdvReac Type Severity Reaction Status Date / Time No Known Allergies Allergy Verified 05/14/18 15:43 Review of Systems ROS Statement: Except As Marked, All Systems Reviewed And Found Negative Constitutional: Negative for: Fever, Chills ENT: Positive for: Nose Congestion Cardiovascular: Negative for: Chest Pain Respiratory: Positive for: Cough (chest tightness) Gastrointestinal: Negative for: Nausea, Vomiting, Abdominal Pain Physical Exam - Reviewed Nursing Documentation Reviewed: Yes Vital Signs Reviewed: Yes - Physical Exam Comments: GENERAL APPEARANCE: Patient is awake, alert, oriented x 3, in no acute distress. Resting comfortably. SKIN: Warm, dry; (-) cyanosis. EYES: (-) conjunctival injection ENMT: Mucous membranes moist. Airway patent: (-) stridor. Pharynx: clear, uvula midline (-) swelling, (-) erythema. TMs: nonbulging, nonerythematous. (-) sinusitis. NECK: Supple, FROM (-) tenderness, (-) stiffness, (-) lymphadenopathy. CHEST AND RESPIRATORY: (+) Faint inspiratory wheezing; (-) respiratory distress, (-) nasal flaring, (-) accessory muscle use, (-) rales, (-) rhonchi, (-) retractions; breath sounds equal bilaterally. (+) even and unlabored breathing. HEART AND CARDIOVASCULAR: (-) irregularity ABDOMEN AND GI: Soft; (-) tenderness. EXTREMITIES: (-) deformity, (-) edema (-) calf tenderness. NEURO AND PSYCH: Mental status as above; (-) focal findings. Gait: steady. Speech: clear. (-) facial asymmetry - ECG O2 Sat by Pulse Oximetry: 99 (RA) Pulse Ox Interpretation: Normal Medical Decision Making Medical Decision Making: Time: 15:50 Initial Impression: Asthma exacerbation Initial Plan: --Albuterol 0.083% Inhal Debby 2.5 mg INH --Duoneb 3mg/0.5mg Debby 3 ml INH x2 --SOLU-medrol 125 mg IM --Reevaluation 1714 On re-evaluation, patient reports improvement of symptoms. On exam, patient remains AAOx3, in no acute distress. Lungs clear to auscultation, cardiac RRR. Breath sounds improved, respirations nonlabored, no evidence of respiratory distress. Vitals stable. Lab/Diagnostic results d/w the patient in great detail. Diagnosis of asthma exacerbation, SOB-resolved d/w the patient. Based on history, exam and diagnostic results, plan will be for outpatient follow up with PMD. Patient instructed to follow-up with pmd / referral provided / the clinic in 1- 2 days without fail. Advised to take medication as prescribed. Return to the emergency room at any time for any new or worsening symptoms. Patient states she fully agrees with and understands discharge instructions. States that she agrees with the plan and disposition. Verbalized and repeated discharge instructions and plan. I have given the patient opportunity to ask any additional questions. ----- Scribe Attestation: Documented by Lei Alexander, acting as a scribe for Ava Guerra PA-C. Provider Scribe Attestation: All medical record entries made by the Scribe were at my direction and personally dictated by me. I have reviewed the chart and agree that the record accurately reflects my personal performance of the history, physical exam, medical decision making, and the department course for this patient. I have also personally directed, reviewed, and agree with the discharge instructions and disposition. Disposition - Clinical Impression Clinical Impression: Asthma exacerbation, Cough in adult, Shortness of breath - Patient ED Disposition Is Patient to be Admitted: No Counseled Patient/Family Regarding: Studies Performed, Diagnosis, Need For Followup, Rx Given - Disposition Referrals: [facility] [Outside] Disposition: Routine/Home Disposition Time: 17:15 Condition: STABLE Additional Instructions: The emergency medical care you received today was directed at your acute symptoms. If you were prescribed any medication, please fill it and take as directed. It may take several days for your symptoms to resolve. Return to the Emergency Department if your symptoms worsen, do not improve, or if you have any other problems. Please contact your doctor in 2 days for re-evaluation and follow up / or call one of the physicians/clinics you have been referred to that are listed on the Patient Visit Information form that is included in your discharge packet. Bring any paperwork you were given at discharge with you along with any medications you are taking to your follow up visit. Our treatment cannot replace ongoing medical care by a primary care provider (PCP) outside of the emergency department. Prescriptions: Albuterol Sulfate [Ventolin Hfa] 1 puff IH Q4 PRN #1 unit PRN Reason: Shortness Of Breath RX: predniSONE [predniSONE Tab] 40 mg PO DAILY #8 tab Instructions: Asthma in Adults, Cough in Adults, Shortness of Breath (Dyspnea) (DC), Medicines for Asthma Forms: [facility] (Botswanan) Print Language: MALAY - POA Present On Arrival: None
[2018-05-14] MEDS: Albuterol-Ipratrop 3 mg / 0.5 (3 ml) UD INH STA ×2 (16:31→17:05)
[2018-05-14] MEDS: Albuterol 0.083% Inhal Sol (2.5 mg/3 mL) UD INH STA (16:31)
[2018-05-14] MEDS ORDERED: Albuterol-Ipratrop 3 mg / 0.5 (3 ml) UD ONE (17:06)
[2018-05-14 17:55] VITALS: BP 135/80; PULSE 80; RESP 18
[2018-05-17] VITALS: O2SAT 99
== END 2018-05-14 17:53 | disposition home or self-care (01) ==
LOC: H.ER 15:41
DX: J45.901 Unspecified asthma with (acute) exacerbation (principal); R05 Cough; R06.02 Shortness of breath; G50.0 Trigeminal neuralgia
CPT/HCPCS: 81025; 94640; 96372; 99282; J2930

== ENCOUNTER 2018-06-02 22:50 | Emergency (ER) | payer MEDICAID, OTHER ==
[2018-06-02 22:55] VITALS: BP 124/68; PULSE 72; RESP 18; TEMP 98.7; O2SAT 100
--- NOTE | 2018-06-03 00:01 | ED PDOC ---
HPI: Neurologic - General Time Seen by Provider: 06/02/18 23:09 Chief Complaint (Nursing): Upper Extremity Problem/Injury Chief Complaint (Provider): left sided facial pain Exam Limitations: no limitations - History of Present Illness Allergies/Adverse Reactions: Allergies No Known Allergies Allergy (Verified 06/02/18 22:54) Home Medications: Ambulatory Orders Gabapentin [Neurontin] 600 mg PO TID 10 Days tab 01/03/18 Albuterol HFA [Ventolin HFA 90 mcg/actuation (8 g)] 2 puff IH [id number] PRN 01/13/18 Ibuprofen [Motrin Tab] 800 mg PO Q6H PRN #30 tab 01/13/18 Lidocaine 5% [Lidoderm] 1 patch TD Q12H #10 patch 01/13/18 Pregabalin [Lyrica] 150 mg PO DAILY #7 capsule 01/13/18 traMADol [Ultram] 50 mg PO Q8 #10 tab 01/23/18 Albuterol Sulfate [Ventolin Hfa] 1 puff IH Q4 PRN #1 unit 05/14/18 predniSONE [predniSONE Tab] 40 mg PO DAILY #8 tab 05/14/18 Tramadol HCl [Ultram] 50 mg PO QID #20 tab 05/26/18 Gabapentin 1,200 mg PO DAILY 7 Days tablet 06/03/18 Additional Complaint(s): 43 y/o F with hx of trigeminal neuralgia on Tramadol and Gabapentin who presents with worsening left sided facial pain that extends to shoulder and left chest. Pt was last seen in ED on 05/28 for similar symptoms and was prescribed Tramadol for 5 days. She has been taking Tramadol and Gabapentin as prescribed with no improvement in her facial pain. Admits to having associated left ear pain and tearing. No unilateral weakness, hand numbness or tingling, dizziness, visual disturbance. Pt admits to being on chronic Prednisone but is unsure of dose. Past Medical History Reviewed: Historical Data, Nursing Documentation, Vital Signs Vital Signs: Last Vital Signs Temp 98.7 F 06/02/18 22:52 Pulse 72 06/02/18 22:52 Resp 18 06/02/18 22:52 BP 124/68 06/02/18 22:52 Pulse Ox 100 06/02/18 22:52 - Medical History PMH: Asthma Denies: HIV, Chronic Kidney Disease Other PMH: trigeminal neuralgia - Family History Family History: States: Unknown Family Hx - Immunization History Hx Tetanus Toxoid Vaccination: Yes Hx Influenza Vaccination: Yes Hx Pneumococcal Vaccination: Yes - Home Medications Home Medications: Ambulatory Orders Medication Instructions Recorded Gabapentin [Neurontin] 600 mg PO TID 10 Days tab 01/03/18 Albuterol HFA [Ventolin HFA 90 2 puff IH [id number] PRN 01/13/18 mcg/actuation (8 g)] Ibuprofen [Motrin Tab] 800 mg PO Q6H PRN #30 tab 01/13/18 Lidocaine 5% [Lidoderm] 1 patch TD Q12H #10 patch 01/13/18 Pregabalin [Lyrica] 150 mg PO DAILY #7 capsule 01/13/18 traMADol [Ultram] 50 mg PO Q8 #10 tab 01/23/18 Albuterol Sulfate [Ventolin Hfa] 1 puff IH Q4 PRN #1 unit 05/14/18 predniSONE [predniSONE Tab] 40 mg PO DAILY #8 tab 05/14/18 Tramadol HCl [Ultram] 50 mg PO QID #20 tab 05/26/18 Gabapentin 1,200 mg PO DAILY 7 Days tablet 06/03/18 - Allergies Allergies/Adverse Reactions: Allergies Allergy/AdvReac Type Severity Reaction Status Date / Time No Known Allergies Allergy Verified 06/02/18 22:54 Review of Systems Constitutional: Negative for: Fever, Chills Eyes: Positive for: Other (tearing). Negative for: Vision Change ENT: Positive for: Ear Pain. Negative for: Nose Pain, Nose Discharge, Throat Pain Musculoskeletal: Positive for: Shoulder Pain Neurological: Negative for: Weakness Physical Exam - Reviewed Nursing Documentation Reviewed: Yes Vital Signs Reviewed: Yes - Physical Exam Appears: Positive for: Uncomfortable Head Exam: Positive for: ATRAUMATIC Eye Exam: Positive for: Conjunctival injection (mild left ), Other (left eye lacrimation) Neck: Positive for: Normal, Painless ROM Extremity: Positive for: Capillary Refill (< 2 sec). Negative for: Normal ROM (decreased ROM with abduction and flexion of left shoulder. ) Neurological/Psych: Positive for: Awake, Alert, Oriented, Motor/Sensory Deficits (mildly decreased sensation to light touch on left. 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 ). Negative for: Facial Droop - ECG O2 Sat by Pulse Oximetry: 100 Medical Decision Making Medical Decision Making: Toradol 30mg IM x 1 [place] RN [employer]PERATING RO[employer]ware website queried. Pt last filled 30 days supply of Tramadol on 05/17/18. Case discussed with Dr. Moya of neurology. Recommends increasing Gabapentin to 1200mg PO daily and referral to pain management as no further therapy would be offered by neurologist. Plan discussed with patient who is in agreement and understands the importance of seeing a pain specialist JORGE and being persistent about obtaining a referral if needed. Pt ordered for an additional 300mg PO Gabapentin. Pain has not improved at all with Toradol alone. Disposition - Clinical Impression Clinical Impression: Trigeminal neuralgia of left side of face - Patient ED Disposition Is Patient to be Admitted: No Counseled Patient/Family Regarding: Diagnosis, Need For Followup - Disposition Referrals: Kem Briceno MD [Medical Doctor] - Soham Tran MD [Staff Provider] - Disposition: Routine/Home Disposition Time: 00:30 Condition: STABLE Additional Instructions: Follow up with Dr. Briceno as planned. Follow up with Dr. Tran or another pain specialist as soon as possible for further treatment of pain. Start taking Gabapentin 1200mg by mouth once daily. Continue Tramadol as prescribed. Prescriptions: Gabapentin 1,200 mg PO DAILY 7 Days tablet Instructions: Trigeminal Neuralgia Forms: [employer] (Polish) Print Language: GREEK
== END 2018-06-03 00:34 | disposition home or self-care (01) ==
LOC: H.ER 22:50
DX: G50.0 Trigeminal neuralgia (principal)
CPT/HCPCS: 96372; 99283; J1885

== ENCOUNTER 2018-06-29 18:55 | Emergency (ER) | payer MEDICAID ==
[2018-06-29] MEDS ORDERED: Tdap Vaccine 0.5 ml Vial (10-64 yrs) IM ONE ×2 (19:27→19:31)
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
[2018-06-29 19:50] VITALS: BP 139/87; PULSE 97; RESP 16; TEMP 99
[2018-06-29 19:53] VITALS: O2SAT 98
== END 2018-06-29 19:50 | disposition home or self-care (01) ==
LOC: H.ER 18:55
DX: S00.81XA Abrasion of other part of head, initial encounter (principal); Y04.0XXA Assault by unarmed brawl or fight, initial encounter; Y92.89 Other specified places as the place of occurrence of the external cause